=== PATIENT | female | born 1985 | race Caucasian/White ===

== ENCOUNTER → 2025-01-03 | Outpatient (CLI) | payer OTHER ==
[~2025-01-03] MED LIST: ACYC800 PO; AZIT250 PO; BIRTH CONTROL PO; Bactrim Ds Tab1 EACH PO; CALGLU500 PO; DOXY100 PO; HYDACE5 PO; HYDGUAL120 PO; HYDPAM25 PO; IBUHYD PO; IBUP600 PO; LIDO5TP TOP; MEDR150I; META800 PO; MULVITA PO; MULVITMIND PO; MULVITMINE; NAPR500 PO; ONDA4 PO; ONDA4ODT MM; ORTHO TRICYCLIN; OXYACE5T PO; OXYC5 PO; PHENA200 PO; PRENZ PO; PROM25 PO; PROM25S PR; RXHYDACE PO; RXHYDGUAS PO; RXOXYACE PO; STOMUL PO; SULTRIDS PO; TERB24TC TOP; TRAM50 PO
[2025-01-07 07:11] LABS: HPVG SOURCE Cervical
== END | disposition home or self-care (01) ==
LOC: LAB SHORT 20:56 → LAB 20:56
DX: Z12.4 Encounter for screening for malignant neoplasm of cervix (principal)
CPT/HCPCS: 87624; 87625; G0145